=== PATIENT | female | born 1940 | race Caucasian/White ===

== ENCOUNTER → 2023-08-10 09:30 | Outpatient (REF) | payer MEDICARE, OTHER, SELFPAY ==
[2023-08-10 13:44] LABS: ALT (SGPT) 17 U/L (0-35); AST (SGOT) 26 U/L (14-36); Albumin 4.2 g/dl (3.5-5.0); Alkaline Phosphatase 75 U/L (38-126); Blood Urea Nitrogen 30 mg/dl (7-17); Calcium 9.6 mg/dl (8.4-10.2); Carbon Dioxide 29 mmol/L (22-30); Chloride 102 mmol/L (98-107); Glucose 96 mg/dl (70-99); HDL Cholesterol 70 mg/dl; LDL Cholesterol, Calculated 86 mg/dl; Potassium 4.5 mmol/L (3.5-5.1); Sodium 138 mmol/L (135-145); Total Bilirubin 0.7 mg/dl (0.2-1.3); Total Cholesterol 173 mg/dl (50-199); Total Protein 6.6 g/dl (6.3-8.2); Triglyceride 88 mg/dl (10-149); Very Low Density Lipoprotein 17 mg/dl (0-30); eGFR > 60.00
[2023-08-10 13:53] LABS: Glycohemoglobin (HgbA1c) 6.1 % (4.0-5.6)
== END ==
LOC: HWLAB 09:30
PROVIDERS: ATTENDING PHYSICIAN Internal Medicine
DX: E78.5 Hyperlipidemia, unspecified (principal); R73.01 Impaired fasting glucose
CPT/HCPCS: 36415; 80053; 80061; 83036

== ENCOUNTER → 2023-08-18 15:29 | Outpatient (REF) | payer MEDICARE, OTHER, SELFPAY | LOC: HWRAD 15:29 | PROVIDERS: ATTENDING PHYSICIAN Internal Medicine | DX: M25.562 Pain in left knee (principal) | CPT/HCPCS: 73564 ==

== ENCOUNTER → 2023-10-12 14:49 | Outpatient (REF) | payer MEDICARE, OTHER, SELFPAY | LOC: RCS 14:49 | PROVIDERS: ATTENDING PHYSICIAN Internal Medicine | DX: I36.1 Nonrheumatic tricuspid (valve) insufficiency (principal) | CPT/HCPCS: 93306 ==

== ENCOUNTER → 2024-02-10 09:04 | Outpatient (REF) | payer MEDICARE, OTHER, SELFPAY ==
[2024-02-10 12:38] LABS: ALT (SGPT) 20 U/L (0-35); AST (SGOT) 27 U/L (14-36); Albumin 4.2 g/dl (3.5-5.0); Alkaline Phosphatase 74 U/L (38-126); Blood Urea Nitrogen 26 mg/dl (7-17); Calcium 9.4 mg/dl (8.4-10.2); Carbon Dioxide 30 mmol/L (22-30); Chloride 102 mmol/L (98-107); Glucose 102 mg/dl (70-99); Glycohemoglobin (HgbA1c) 5.8 % (4.0-5.6); HDL Cholesterol 67 mg/dl; LDL Cholesterol, Calculated 95 mg/dl; Potassium 4.2 mmol/L (3.5-5.1); Sodium 141 mmol/L (135-145); Total Bilirubin 0.6 mg/dl (0.2-1.3); Total Cholesterol 177 mg/dl (50-199); Total Protein 6.6 g/dl (6.3-8.2); Triglyceride 79 mg/dl (10-149); Very Low Density Lipoprotein 15 mg/dl (0-30); eGFR > 60.00
[2024-02-10 12:50] LABS: Free T3 3.16 pg/ml (2.77-5.27); Free T4 1.37 ng/dl (0.78-2.19)
[2024-02-10 13:04] LABS: TSH 2.38 uIU/ml (0.47-4.68)
== END ==
LOC: HWLAB 09:04
PROVIDERS: ATTENDING PHYSICIAN Internal Medicine
DX: E78.5 Hyperlipidemia, unspecified (principal); E03.9 Hypothyroidism, unspecified; R73.01 Impaired fasting glucose
CPT/HCPCS: 36415; 80053; 80061; 83036; 84439; 84443; 84481

== ENCOUNTER → 2024-09-15 09:44 | Outpatient (REF) | payer MEDICARE, OTHER, SELFPAY ==
[2024-09-15 12:45] LABS: ALT (SGPT) 16 U/L (0-35); AST (SGOT) 24 U/L (14-36); Albumin 4.3 g/dl (3.5-5.0); Alkaline Phosphatase 64 U/L (38-126); Blood Urea Nitrogen 26 mg/dl (7-17); Calcium 9.3 mg/dl (8.4-10.2); Carbon Dioxide 30 mmol/L (22-30); Chloride 107 mmol/L (98-107); Glucose 92 mg/dl (70-99); HDL Cholesterol 66 mg/dl; LDL Cholesterol, Calculated 93 mg/dl; Potassium 4.6 mmol/L (3.5-5.1); Sodium 141 mmol/L (135-145); Total Bilirubin 0.6 mg/dl (0.2-1.3); Total Cholesterol 171 mg/dl (50-199); Total Protein 6.7 g/dl (6.3-8.2); Triglyceride 61 mg/dl (10-149); Very Low Density Lipoprotein 12 mg/dl (0-30); eGFR > 60.00
[2024-09-15 13:50] LABS: Glycohemoglobin (HgbA1c) 5.9 % (4.0-5.6)
== END ==
LOC: HWLAB 09:44
PROVIDERS: ATTENDING PHYSICIAN Internal Medicine
DX: I10 Essential (primary) hypertension (principal); E78.5 Hyperlipidemia, unspecified; R73.01 Impaired fasting glucose
CPT/HCPCS: 36415; 80053; 80061; 83036

== ENCOUNTER → 2024-12-27 09:57 | Outpatient (REF) | payer MEDICARE, OTHER, SELFPAY ==
[2024-12-27 12:48] LABS: Free T3 2.57 pg/ml (2.77-5.27)
[2024-12-27 13:02] LABS: TSH 22.80 uIU/ml (0.47-4.68)
== END ==
LOC: HWLAB 09:57
PROVIDERS: ATTENDING PHYSICIAN Internal Medicine
DX: E03.9 Hypothyroidism, unspecified (principal); E78.5 Hyperlipidemia, unspecified
CPT/HCPCS: 36415; 84439; 84443; 84481

== ENCOUNTER 2025-01-05 07:02 | Inpatient (IN) | payer MEDICARE, OTHER, SELFPAY ==
--- NOTE | 2024-11-30 12:34 | CM ---
Demographics: confirmed
Living situation: two level home, with . First floor set up.
Support Person Post Operatively: , Jarod
History of
VN: none,
SNF: none
Outpatient: [facility] 01/09
Has patient purchased required equipment: Patient reports having left message for Ap at [facility] for required DME
PCP: Cira
Pharmacy: [facility]
Post Operative Discharge Plan: Outpatient PT with to support.
[2024-12-21 13:53] VITALS: BMI 25.2
[2024-12-21 13:53] LABS: Hematocrit 38.6 % (37.0-47.0); Hemoglobin 12.6 g/dL (12.0-16.0); Mean Corp Hgb Conc. 32.6 g/dL (33.0-37.0); Mean Corpuscular Volume 91.9 fL (81.0-99.0); Platelet Count 248 10^3/uL (130-400); Red Cell Dist. Width 14.7 % (11.5-14.5)
--- NOTE | 2024-12-21 14:05 | SLEEP.APNEA ---
Sleep Apnea Order
-
Patient screened as High Risk for Sleep Apnea on Stop Bang Questionnaire. Patient referred to [facility] for Pre-Study.

Name: MAYCOL FERGUSON
: 1940
Home Phone: Use [email or web address] instead
Cell Phone: [f_Reg Other Phone]
Work Phone:
Address: [address] [place] [address]
City: [place]
State: [place]
Zip: [f_[facility] Zip]
Family Physician: Khushi Moody
Height 5 ft 3 in
Actual Weight 64.5 kg
Body Mass Index (BMI) 25.2
Ordering Provider: Zulma Lockhart
[2024-12-21 14:23] LABS: Glycohemoglobin (HgbA1c) 5.8 % (4.0-5.6)
[2024-12-21 14:36] LABS: ALT (SGPT) 25 U/L (0-35); AST (SGOT) 26 U/L (14-36); Albumin 4.5 g/dl (3.5-5.0); Alkaline Phosphatase 77 U/L (38-126); Blood Urea Nitrogen 21 mg/dl (7-17); Calcium 9.3 mg/dl (8.4-10.2); Carbon Dioxide 31 mmol/L (22-30); Chloride 102 mmol/L (98-107); Estimated Creatinine Clearance 44 ml/min; Glucose 98 mg/dl (70-99); Potassium 4.2 mmol/L (3.5-5.1); Sodium 138 mmol/L (135-145); Total Protein 7.0 g/dl (6.3-8.2); eGFR > 60.00
[2025-01-05] VITALS (21 sets, daily range): BP systolic 100–160; BP diastolic 53–126; PULSE 56; O2SAT 99
[2025-01-05] MEDS: NORMOSOL-R/PLASMALYTE-A 1000 IV ×2 (07:36→13:34)
[2025-01-05] MEDS: MOBIC 15 MG PO (07:40)
[2025-01-05] MEDS: TYLENOL 650 MG PO ×3 (07:40→21:31)
--- NOTE | 2025-01-05 08:02 | W.PN.ORTHO ---
Today's Communication / Plan
-
d/c when stable
Plan
.
Surgery / Date: L TKA Dr Hernandez 01/05/25
DVT Prophylaxis: Aspirin
Activity:
Out of bed.
PT/OT
Discharge Plan: Home w/ Outpatient PT (tentative)
Vital Signs and Labs
.
Vital Signs and Labs:
Lab Results
12/21/24 13:28
12/21/24 13:28
Temp Pulse Resp BP Pulse Ox
97.5 F 55 14 160/65 99
01/05/25 07:15 01/05/25 07:15 01/05/25 07:15 01/05/25 07:15 01/05/25 07:15
--- NOTE | 2025-01-05 08:12 | W.DS.TRANS ---
DC Summary - User Experience Lead
-
Discharge Instructions:
Discharge Diagnosis/Procedures L TKA Dr Hernandez 01/05/25
Diet As tolerated
Activity With Walker
Driving Restrictions No driving
Bathing Restrictions OK to Shower
Other Services PT
Instructions:
Stand-Alone Forms: Total Hip/Knee Replacement D/C
Changes to Home Medications: Yes
Discharge Medications:
DC Medications w/original date entered in [facility]
Bladder Ease 1 tab PO DAILY 12/20/24
D-Mannose With Cranactin 1 tab PO QPM 12/20/24
Held on 01/05/25. Instructions: Resume on 01/13/25.
azelastine 137 mcg (0.1 %) nasal spray 1 spray intranasal BID PRN congestion 12/20/24
calcium 600 mg (as carbonate)-vitamin D3 10 mcg (400 unit) tablet (Calcium 600 + D(3)) 1 tab PO BID 12/20/24
calcium glycerophosphate 65 mg (as calcium glycerophosphate) tablet (Prelief) 130 mg PO DAILY IC 12/20/24
Held on 01/05/25. Instructions: Resume on 01/13/25.
cholecalciferol (vitamin D3) 25 mcg (1,000 unit) capsule (Vitamin D3) 25 mcg PO DAILY 12/20/24
docusate sodium 100 mg capsule (Colace) 100 mg PO BID 12/20/24
estradiol 10 mcg vaginal tablet (Vagifem) 10 mcg vaginal Q96H 12/20/24
levothyroxine 125 mcg tablet (Synthroid) 125 mcg PO DAILY 12/20/24
mupirocin 2 % topical ointment 1 applic topical BID infection prevention #1 tube 12/20/24
olopatadine 0.2 % eye drops 1 drp ophthalmic (eye) DAILY 12/20/24
polyethylene glycol 400 0.25 % eye drops (Blink Tears) 1 drp ophthalmic (eye) QID PRN dry eyes 12/20/24
potassium citrate 10 mEq (1,080 mg) tablet,extended release 10 meq PO BID 12/20/24
pravastatin 10 mg tablet 10 mg PO QPM 12/20/24
turmeric 1,000 mg PO QPM 12/20/24
Held on 01/05/25. Instructions: Resume on 01/13/25.
vit C 250 mg-vit E 90 mg-zinc 40 mg-copper 1 ny-[id number] capsule (PreserVision AREDS-2) 1 tab PO DAILY 12/20/24
Held on 01/05/25. Instructions: Resume on 01/13/25.
dexamethasone 4 mg tablet 4 mg PO BID inflammation #6 tabs 12/21/24
famotidine 20 mg tablet 20 mg PO HS GI prophylaxis #30 tabs 12/21/24
gabapentin 300 mg capsule 300 mg PO HS sleep/pain #10 caps 12/21/24
ondansetron 4 mg disintegrating tablet 4 mg PO Q6H PRN n/v #20 tabs 12/21/24
oxycodone 5 mg tablet 5 mg PO Q6H PRN 1 tab moderate pain, 2 tabs severe pain #30 tabs 12/21/24
acetaminophen 325 mg tablet (Tylenol) 650 mg (2 x 325 mg) PO QID #1 tab 01/05/25
amlodipine 5 mg tablet 5 mg PO QPM #0 tabs 01/05/25
aspirin 325 mg tablet 325 mg PO DAILY blood clot prevention #1 tab 01/05/25
irbesartan 300 mg tablet 300 mg PO DAILY #0 tabs 01/05/25
magnesium hydroxide 400 mg/5 mL oral suspension (Milk of Magnesia) 30 ml PO HS PRN constipation #1 mL 01/05/25
meloxicam 15 mg tablet 15 mg PO DAILY anti-inflammatory #14 tabs 01/05/25
sennosides 8.6 mg tablet (Senokot) 17.2 mg (2 x 8.6 mg) PO BID laxative #2 tabs 01/05/25
Home Medication Changes
dexamethasone 4 mg tablet 4 mg PO BID inflammation #6 tabs 12/21/24
famotidine 20 mg tablet 20 mg PO HS GI prophylaxis #30 tabs 12/21/24
gabapentin 300 mg capsule 300 mg PO HS sleep/pain #10 caps 12/21/24
ondansetron 4 mg disintegrating tablet 4 mg PO Q6H PRN n/v #20 tabs 12/21/24
oxycodone 5 mg tablet 5 mg PO Q6H PRN 1 tab moderate pain, 2 tabs severe pain #30 tabs 12/21/24
acetaminophen 325 mg tablet (Tylenol) 650 mg (2 x 325 mg) PO QID #1 tab 01/05/25
amlodipine 5 mg tablet 5 mg PO QPM #0 tabs 01/05/25
aspirin 325 mg tablet 325 mg PO DAILY blood clot prevention #1 tab 01/05/25
irbesartan 300 mg tablet 300 mg PO DAILY #0 tabs 01/05/25
magnesium hydroxide 400 mg/5 mL oral suspension (Milk of Magnesia) 30 ml PO HS PRN constipation #1 mL 01/05/25
meloxicam 15 mg tablet 15 mg PO DAILY anti-inflammatory #14 tabs 01/05/25
sennosides 8.6 mg tablet (Senokot) 17.2 mg (2 x 8.6 mg) PO BID laxative #2 tabs 01/05/25
Pending Results: No
--- NOTE | 2025-01-05 12:22 | W.PN.UPDATE ---
Update Note
Progress Note Update
Patient seen and examined in PACU waiting for a bed on the floor. VSS. Pulm: nonlabored. CV: reguloar. LLE: Dressing CDI. NVI distally. Calf soft. Able to fully extend. NVI distally. Postop xray as expected. ASA for DVT prophylaxis. PT
today and plan for discharge tomorrow with outpatient PT on Thursday.
[2025-01-05] MEDS: ROXICODONE 5 MG PO ×2 (12:55→15:45)
[2025-01-05] MEDS: TYLENOL PO (13:34)
[2025-01-05] MEDS: REFRESH EYE DROPS (PF) 1 DROPS OPHTH ×2 (15:44→21:33)
[2025-01-05] MEDS: ANCEF 5 IV ×2 (15:44→23:26)
[2025-01-05] MEDS: ASPIRIN 325 MG PO (17:36)
[2025-01-05] MEDS: PRAVACHOL 10 MG PO (17:39)
[2025-01-05] MEDS: REFRESH EYE DROPS (PF) OPHTH (17:43)
[2025-01-05] MEDS: SENOKOT 17.2 MG PO (21:31)
[2025-01-05] MEDS: NEURONTIN 300 MG PO (21:31)
[2025-01-05] MEDS: PEPCID 20 MG PO (21:32)
[2025-01-05] MEDS: TORADOL 15 MG IV (21:32)
[2025-01-05] MEDS: COLACE 100 MG PO (21:32)
[2025-01-05] MEDS: DECADRON 4 MG IV (21:33)
[2025-01-05] MEDS: BACTROBAN 2% OINTMENT 1 APPLIC NASAL (23:26)
[2025-01-06] MEDS: TYLENOL PO ×2 (01:10→05:12)
[2025-01-06] MEDS: TYLENOL 650 MG PO ×2 (01:23→08:40)
[2025-01-06 03:27] VITALS: BP 116/64
[2025-01-06] MEDS: SYNTHROID 125 MCG PO (06:33)
[2025-01-06 07:20] VITALS: BP 159/58
[2025-01-06] MEDS: TORADOL 15 MG IV (08:40)
[2025-01-06] MEDS: SENOKOT 17.2 MG PO (08:40)
[2025-01-06] MEDS: ASPIRIN 325 MG PO (08:40)
[2025-01-06] MEDS: COLACE 100 MG PO (08:40)
[2025-01-06] MEDS: REFRESH EYE DROPS (PF) 1 DROPS OPHTH (08:40)
[2025-01-06] MEDS: DECADRON 4 MG IV (08:41)
[2025-01-06] MEDS: BACTROBAN 2% OINTMENT 1 APPLIC NASAL (08:41)
[2025-01-06 09:28] VITALS: BP 152/59; PULSE 52; O2SAT 100
--- NOTE | 2025-01-06 09:30 | CM ---
Cm met with patient in room. CM confirmed that patient has her outpatient PT appointments made. IMM given.
PLAN: Home, outpatient PT.
[2025-01-06 10:33] VITALS: BP 154/58; PULSE 55
--- NOTE | 2025-01-06 11:31 | W.PN.ORTHO ---
Today's Communication / Plan
-
d/c
Assessment
.
Distal Motor Intact: Yes
Dressing:
Clean, dry and intact.
Plan
.
Surgery / Date: Javier Hernandez 01/05/25
DVT Prophylaxis: Aspirin
Activity:
Out of bed.
PT/OT
Discharge Plan: Home w/ Outpatient PT
Subjective
.
.:
Patient resting comfortably.
Vital Signs and Labs
.
Vital Signs and Labs:
Lab Results
12/21/24 13:28
12/21/24 13:28
Temp Pulse Resp BP Pulse Ox
97.6 F 60 18 159/58 100
01/06/25 07:20 01/06/25 07:20 01/06/25 07:20 01/06/25 07:20 01/06/25 07:20
Non-invasive Hgb result: 11
Physical Exam
-
HEENT: No pallor, cyanosis, or jaundice. Throat clear.
NECK: Supple. No JVD.
RESPIRATORY: Lungs clear to auscultation.
CVS: S1, S2 normal. RRR.� No murmur, rub or gallop.
ABDOMEN: Soft, non-tender. No distension. BS+/normal.
EXTREMITIES: strength equal, no calf pain with palpation
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 No focal deficits. 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
[2025-01-06] MEDS: AVAPRO 150 MG PO (12:03)
== END 2025-01-06 12:54 | disposition home or self-care (01) | DRG 470 ==
LOC: 2 SOUTH 07:02
PROVIDERS: ADMITTING PHYSICIAN Orthopaedic Surgery; FAMILY PHYSICIAN Internal Medicine; REFERRING PHYSICIAN Internal Medicine Cardiovascular Disease
PROC: 0SRD0J9 Replacement of Left Knee Joint with Synthetic Substitute, Cemented, Open Approach (ICD-10-PCS; 2025-01-05)
DX: M17.12 Unilateral primary osteoarthritis, left knee (principal); I10 Essential (primary) hypertension; M21.062 Valgus deformity, not elsewhere classified, left knee; E78.5 Hyperlipidemia, unspecified; E03.9 Hypothyroidism, unspecified; M85.80 Other specified disorders of bone density and structure, unspecified site; I87.2 Venous insufficiency (chronic) (peripheral); G47.33 Obstructive sleep apnea (adult) (pediatric); Z88.2 Allergy status to sulfonamides; Z79.890 Hormone replacement therapy; Z88.8 Allergy status to other drugs, medicaments and biological substances
CPT/HCPCS: 36415; 73560; 80053; 83036; 85027; 87070; 97110; 97116; 97162; 97166; 97530; 97535; C1713; C1776

== ENCOUNTER → 2025-02-09 09:29 | Outpatient (REF) | payer MEDICARE, OTHER, SELFPAY ==
[2025-02-09 12:34] LABS: ALT (SGPT) 20 U/L (0-35); AST (SGOT) 24 U/L (14-36); Albumin 4.1 g/dl (3.5-5.0); Alkaline Phosphatase 97 U/L (38-126); Blood Urea Nitrogen 25 mg/dl (7-17); Calcium 9.4 mg/dl (8.4-10.2); Carbon Dioxide 30 mmol/L (22-30); Chloride 102 mmol/L (98-107); Glucose 93 mg/dl (70-99); HDL Cholesterol 75 mg/dl; LDL Cholesterol, Calculated 69 mg/dl; Potassium 4.5 mmol/L (3.5-5.1); Sodium 136 mmol/L (135-145); Total Protein 6.8 g/dl (6.3-8.2); Very Low Density Lipoprotein 16 mg/dl (0-30); eGFR > 60.00
[2025-02-09 13:02] LABS: TSH 4.35 uIU/ml (0.47-4.68)
[2025-02-09 13:38] LABS: Glycohemoglobin (HgbA1c) 5.5 % (4.0-5.9)
[2025-02-09 16:19] LABS: Free T3 3.14 pg/ml (2.77-5.27)
== END ==
LOC: HWLAB 09:29
PROVIDERS: ATTENDING PHYSICIAN Internal Medicine
DX: E03.9 Hypothyroidism, unspecified (principal); E78.5 Hyperlipidemia, unspecified; R73.01 Impaired fasting glucose
CPT/HCPCS: 36415; 80053; 80061; 83036; 84439; 84443; 84481